=== PATIENT | male | born 1945 | race Caucasian/White ===

== ENCOUNTER 2017-08-09 15:13 | Emergency (ER) | payer MEDICARE, OTHER ==
[~2017-08-09] VITALS: Ht 193 cm; Wt 147.7 kg
[~2017-08-09 15:13] MED LIST: ALD25T PO; ALPR-624 PO; CANA300T PO; CELE-193 PO; CITA-278 PO; FURO-150 PO; GABA-338 PO; LEVO5TAB13 PO; METF500T PO; METO-539 PO; MOME15CR TP; NIZ2CR TOP; ONDA4TAB6 PO; PANT-47 PO; POTA25TA PO; PRAV10TA38 PO; SUCR1ORA2 PO; TERB30CR22 TP; TIOT18CA7 IH
[2017-08-09 16:30] LABS: BASOPHILS % (AUTO) 0.5 % (0-1); EOSINOPHILS # (AUTO) 0.2 X10'3 (0-0.9); EOSINOPHILS % (AUTO) 2.6 % (0-6); HEMATOCRIT 44.6 % (42.0-52.0); HEMOGLOBIN 15.1 g/dl (14.0-17.9); LYMPHOCYTES # (AUTO) 2.1 X10'3 (1.1-4.8); LYMPHOCYTES % (AUTO) 34.9 % (21-51); MEAN CORPUSCULAR HEMOGLOBIN 29.8 PG (27.0-31.0); MEAN CORPUSCULAR HGB CONC 33.8 % (33.0-36.5); MEAN CORPUSCULAR VOLUME 88.3 FL (78-98); MONOCYTES # (AUTO) 0.4 X10'3 (0-0.9); MONOCYTES % (AUTO) 7.2 % (2-12); NEUTROPHILS # (AUTO) 3.3 X10'3 (1.8-7.7); NEUTROPHILS % (AUTO) 54.8 % (42-75); PLATELET COUNT 254 X10'3 (140-440); RED BLOOD COUNT 5.06 X10'6 (4.70-6.10); RED CELL DISTRIBUTION WIDTH 14.6 % (11.5-14.5); WHITE BLOOD COUNT 5.9 X10'3 (4.5-11.0)
[2017-08-09 16:38] LABS: PARTIAL THROMBOPLASTIN TIME 25 SECONDS (22-32); PROTHROMBIN TIME 10.2 SECONDS (9.0-12.0)
[2017-08-09 16:48] LABS: ALANINE AMINOTRANSFERASE 71 U/L (12-78); ALBUMIN 3.6 G/DL (3.4-5.0); ALBUMIN/GLOBULIN RATIO 0.7 (1.1-1.5); ALKALINE PHOSPHATASE 106 IU/L (46-116); ANION GAP 8 (8-16); ASPARTATE AMINO TRANSFERASE 67 U/L (10-37); BILIRUBIN,TOTAL 0.8 MG/DL (0.1-1.0); BLOOD UREA NITROGEN 17 MG/DL (7-18); BUN/CREATININE RATIO 14.7 (5.4-32.0); CALCIUM 9.6 MG/DL (8.5-10.1); CHLORIDE 97 MMOL/L (99-107); CREATININE 1.16 MG/DL (0.60-1.10); GLUCOSE 331 MG/DL (70-104); POTASSIUM 4.6 MMOL/L (3.5-5.1); SODIUM 137 MMOL/L (135-145); TOTAL CARBON DIOXIDE 32.3 MMOL/L (24-32); TOTAL PROTEIN 8.5 G/DL (6.4-8.2); eGFR 62 ML/MIN
[2017-08-09 16:50] LABS: TROPONIN I < 0.04 NG/ML (0.0-0.05)
[2017-08-09] MEDS ORDERED: PROPARACAINE/FLUORESCEIN ophthalmic drops 5ml bottle LEFTEYE ONE (19:40)
[2017-08-09] MEDS ORDERED: ACYC-202 PO (19:53)
[2017-08-09] MEDS ORDERED: AMOX-580 PO (19:53)
[2017-08-09 20:47] VITALS: BP 128/81
== END 2017-08-09 20:49 | disposition home or self-care (01) ==
LOC: ER 15:13
DX: G51.0 Bell's palsy (principal); I10 Essential (primary) hypertension; E11.9 Type 2 diabetes mellitus without complications; Z88.5 Allergy status to narcotic agent; Z88.8 Allergy status to other drugs, medicaments and biological substances; Z79.84 Long term (current) use of oral hypoglycemic drugs; Z79.899 Other long term (current) drug therapy
CPT/HCPCS: 36415; 70450; 71045; 80053; 82948; 84484; 85025; 85610; 85730; 93005; 99285

== ENCOUNTER 2017-08-13 12:57 | Emergency (ER) | payer MEDICARE, OTHER ==
[~2017-08-13] VITALS: Ht 193 cm; Wt 149.0 kg
[~2017-08-13 12:57] MED LIST changes: +ACYC-202 PO; +AMOX-580 PO
[2017-08-13 13:01] VITALS: BP 157/82
[2017-08-13 13:32] LABS: BASOPHILS % (AUTO) 0.5 % (0-1); EOSINOPHILS # (AUTO) 0.2 X10'3 (0-0.9); EOSINOPHILS % (AUTO) 2.5 % (0-6); HEMATOCRIT 43.7 % (42.0-52.0); HEMOGLOBIN 14.9 g/dl (14.0-17.9); LYMPHOCYTES % (AUTO) 32.3 % (21-51); MEAN CORPUSCULAR HEMOGLOBIN 30.5 PG (27.0-31.0); MEAN CORPUSCULAR HGB CONC 34.2 % (33.0-36.5); MEAN PLATELET VOLUME 7.7 FL (7.4-10.4); MONOCYTES # (AUTO) 0.5 X10'3 (0-0.9); MONOCYTES % (AUTO) 7.4 % (2-12); NEUTROPHILS # (AUTO) 3.5 X10'3 (1.8-7.7); NEUTROPHILS % (AUTO) 57.3 % (42-75); PLATELET COUNT 238 X10'3 (140-440); WHITE BLOOD COUNT 6.2 X10'3 (4.5-11.0)
[2017-08-13 13:47] LABS: ALANINE AMINOTRANSFERASE 55 U/L (12-78); ALBUMIN 3.3 G/DL (3.4-5.0); ALBUMIN/GLOBULIN RATIO 0.7 (1.1-1.5); ALKALINE PHOSPHATASE 92 IU/L (46-116); ANION GAP 5 (8-16); ASPARTATE AMINO TRANSFERASE 52 U/L (10-37); BILIRUBIN,TOTAL 0.9 MG/DL (0.1-1.0); BLOOD UREA NITROGEN 14 MG/DL (7-18); BUN/CREATININE RATIO 12.4 (5.4-32.0); CALCIUM 9.2 MG/DL (8.5-10.1); CHLORIDE 97 MMOL/L (99-107); CREATININE 1.13 MG/DL (0.60-1.10); GLUCOSE 428 MG/DL (70-104); POTASSIUM 4.7 MMOL/L (3.5-5.1); SODIUM 134 MMOL/L (135-145); TOTAL CARBON DIOXIDE 31.7 MMOL/L (24-32); TOTAL PROTEIN 7.8 G/DL (6.4-8.2); eGFR 64 ML/MIN
[2017-08-13] MEDS ORDERED: dexamethasone sod phosphate 10mg/ml inj IM STA (14:33)
== END 2017-08-13 15:07 | disposition home or self-care (01) ==
LOC: ER 12:58
DX: G51.0 Bell's palsy (principal); E11.65 Type 2 diabetes mellitus with hyperglycemia; I10 Essential (primary) hypertension; Z88.8 Allergy status to other drugs, medicaments and biological substances; Z88.5 Allergy status to narcotic agent; Z79.84 Long term (current) use of oral hypoglycemic drugs; Z79.899 Other long term (current) drug therapy
CPT/HCPCS: 36415; 70450; 80053; 85025; 96372; 99285; J1100

== ENCOUNTER 2018-07-11 04:21 | Outpatient (CLI) | payer MEDICARE, OTHER ==
[~2018-07-11 04:21] MED LIST changes: -ACYC-202 PO; -AMOX-580 PO; -CITA-278 PO; +CITA20TA28 PO
== END 2018-07-11 23:59 | disposition home or self-care (01) ==
LOC: RT 04:21
PROVIDERS: ATTEND Internal Medicine Pulmonary Disease
DX: J45.909 Unspecified asthma, uncomplicated (principal); I10 Essential (primary) hypertension; E11.9 Type 2 diabetes mellitus without complications; J44.9 Chronic obstructive pulmonary disease, unspecified; Z88.5 Allergy status to narcotic agent; Z88.8 Allergy status to other drugs, medicaments and biological substances
CPT/HCPCS: 94010; 94618; 94640; 94760

== ENCOUNTER 2022-12-01 17:23 | Emergency (ER) | payer OTHER, MEDICARE ==
[~2022-12-01] VITALS: Ht 193 cm; Wt 122.7 kg
[~2022-12-01 17:23] MED LIST changes: +ALBU90AE INH; +APIX5TAB3 PO; -CANA300T PO; +CARB-126 PO; +CARB1TAB60 PO; +CHOL100046 PO; -CITA20TA28 PO; +ESCI20TA16 PO; -FURO-150 PO; -GABA-338 PO; +GABA800T11 PO; +HYDR25TA4 PO; +INSU100V37 SQ; +METF-900 PO; -METF500T PO; -METO-539 PO; -MOME15CR TP; -NIZ2CR TOP; +OMEG-5 PO; -ONDA4TAB6 PO; -POTA25TA PO; +PRED20TA PO; +SOTA80TA73 PO; -SUCR1ORA2 PO; -TERB30CR22 TP; -TIOT18CA7 IH
[2022-12-01] MEDS ORDERED: normal saline 1000ML IV soln IVB ONE (18:00)
[2022-12-01 19:10] LABS: BASOPHILS % (AUTO) 0.7 % (0-1); EOSINOPHILS # (AUTO) 0.1 X10'3 (0-0.9); HEMATOCRIT 40.2 % (42.0-52.0); HEMOGLOBIN 13.5 g/dl (14.0-17.9); LYMPHOCYTES # (AUTO) 2.7 X10'3 (1.1-4.8); LYMPHOCYTES % (AUTO) 41.3 % (21-51); MEAN CORPUSCULAR HEMOGLOBIN 31.3 PG (27.0-31.0); MEAN CORPUSCULAR HGB CONC 33.7 g/dL (33.0-36.5); MEAN CORPUSCULAR VOLUME 92.7 FL (78-98); MEAN PLATELET VOLUME 7.5 FL (7.4-10.4); MONOCYTES # (AUTO) 0.7 X10'3 (0-0.9); MONOCYTES % (AUTO) 10.8 % (2-12); NEUTROPHILS # (AUTO) 2.9 X10'3 (1.8-7.7); NEUTROPHILS % (AUTO) 45.2 % (42-75); PLATELET COUNT 254 X10'3 (140-440); RED BLOOD COUNT 4.33 X10'6 (4.70-6.10); RED CELL DISTRIBUTION WIDTH 15.2 % (11.5-14.5); WHITE BLOOD COUNT 6.4 X10'3 (4.5-11.0)
[2022-12-01 19:15] LABS: ALBUMIN 3.1 G/DL (3.4-5.0); ALBUMIN/GLOBULIN RATIO 0.8 (1.1-1.5); ALKALINE PHOSPHATASE 82 IU/L (46-116); ANION GAP 6 (8-16); ASPARTATE AMINO TRANSFERASE 47 U/L (10-37); BLOOD UREA NITROGEN 7 MG/DL (7-18); BUN/CREATININE RATIO 9.5 (10.0-20.0); CALCIUM 8.8 MG/DL (8.5-10.1); CHLORIDE 103 MMOL/L (99-107); CREATININE 0.74 MG/DL (0.60-1.10); GLUCOSE 111 MG/DL (70-104); MAGNESIUM 1.9 MG/DL (1.5-2.4); POTASSIUM 3.9 MMOL/L (3.5-5.1); SODIUM 139 MMOL/L (135-145); TOTAL CARBON DIOXIDE 30.3 MMOL/L (24-32); TOTAL PROTEIN 6.8 G/DL (6.4-8.2); eCRCL 106 ML/MIN; eGFR > 90 ML/MIN
[2022-12-01 19:22] LABS: ALANINE AMINOTRANSFERASE < 6 U/L (12-78)
[2022-12-01 20:20] LABS: BILIRUBIN,URINE NEGATIVE (Neg); CLARITY,URINE SLIGHTLY CLOUDY (Clear); COLOR,URINE YELLOW (Yellow); GLUCOSE, URINE >=1000 mg/dl (Neg); KETONES,URINE TRACE mg/dl (Neg); LEUKOCYTE ESTERASE ,URINE NEGATIVE (Neg); NITRITES, URINE NEGATIVE (Neg); OCCULT BLOOD,URINE NEGATIVE (Neg); PROTEIN,URINE NEGATIVE (Neg); UROBILINOGEN,URINE 0.2 E.U/dL (0.2-1.0)
[2022-12-01 20:28] LABS: UA COLLECTION TYPE CLN CATCH MIDSTREAM
[2022-12-01 20:29] LABS: SQUAMOUS EPITHELIAL CELL,UR FEW /LPF (FEW)
[2022-12-01 20:31] LABS: BACTERIA,URINE 1+ /HPF (Neg); RBC,URINE NONE SEEN /HPF (0-2); WBC,URINE NONE SEEN /HPF (0-4); YEAST FEW /HPF (NEGATIVE)
[2022-12-01 22:22] VITALS: BP 125/68; PULSE 69; RESP 16; O2SAT 96
== END 2022-12-01 22:25 | disposition home or self-care (01) ==
LOC: ER 17:23
DX: R42 Dizziness and giddiness (principal); T14.8XXA Other injury of unspecified body region, initial encounter; E78.00 Pure hypercholesterolemia, unspecified; I10 Essential (primary) hypertension; J44.9 Chronic obstructive pulmonary disease, unspecified; E11.9 Type 2 diabetes mellitus without complications; Z88.5 Allergy status to narcotic agent; Z88.8 Allergy status to other drugs, medicaments and biological substances; Z79.82 Long term (current) use of aspirin; Z79.2 Long term (current) use of antibiotics; W19.XXXA Unspecified fall, initial encounter; Y93.89 Activity, other specified; Y92.89 Other specified places as the place of occurrence of the external cause; Y99.8 Other external cause status
CPT/HCPCS: 36415; 71045; 73140; 80053; 81001; 83735; 84484; 85025; 87088; 93005; 99285; J7030; J7040; A4615

== ENCOUNTER 2022-12-06 14:47 | Emergency (ER) | payer OTHER, MEDICARE ==
[~2022-12-06] VITALS: Ht 193 cm; Wt 122.0 kg
[2022-12-06 18:40] VITALS: TEMP 98.3
--- NOTE | 2022-12-06 20:49 | NUR ---
SPOKE WITH PATIENTS GIN [phone] PATIENT CONCERNED ABOUT BLOOD SUGAR, PATIENT IS UPSET A DOCTOR HAS NOT SIGNED UP FOR PATIENT WAS ABLE TO GET VERBAL ORDER FOR PO ISAI PATIENT REFUSED PO AND IS REQUESTING IV MORPHINE, STATES EYES ON PATIENT PRIOR TO IV MEDICATIONS
--- NOTE | 2022-12-06 21:03 | NUR ---
PATIENTS DEX COM SAYS 135 PROVIDED PATIENT TURKEY SANDWICH AND APPLE JUICE NO OTHER NEEDS AT THIS TIME
--- NOTE | 2022-12-06 21:41 | NUR ---
FAMILY AT BEDSIDE STILL NO MD SIGNED UP FOR PATIENT
[2022-12-06] MEDS ORDERED: morphine 4 MG/ML inj SYRINge IV STA (21:42)
[2022-12-06] MEDS ORDERED: ketorolac trometh inj. 60 MG/2 ML VIAL IM ONE (23:30)
[2022-12-06] MEDS ORDERED: TRAM1TAB7 PO (23:32)
[2022-12-07 00:40] VITALS: BP 135/83; PULSE 84; RESP 14; O2SAT 98
== END 2022-12-07 00:42 | disposition home or self-care (01) ==
LOC: ER 14:48
DX: M25.552 Pain in left hip (principal); G20 Parkinson's disease; E78.00 Pure hypercholesterolemia, unspecified; I10 Essential (primary) hypertension; J44.9 Chronic obstructive pulmonary disease, unspecified; E11.9 Type 2 diabetes mellitus without complications; Z88.5 Allergy status to narcotic agent; Z88.6 Allergy status to analgesic agent; Z79.2 Long term (current) use of antibiotics; Z79.899 Other long term (current) drug therapy; Z79.84 Long term (current) use of oral hypoglycemic drugs
CPT/HCPCS: 73502; 74176; 96372; 96374; 99285; J1885; J2270; 73501

== ENCOUNTER 2022-12-09 14:03 | Emergency (ER) | payer OTHER, MEDICARE ==
[~2022-12-09] VITALS: Ht 193 cm; Wt 122.7 kg
[~2022-12-09 14:03] MED LIST changes: +TRAM1TAB7 PO
[2022-12-09 16:02] LABS: BASOPHILS % (AUTO) 0.6 % (0-1); EOSINOPHILS # (AUTO) 0.1 X10'3 (0-0.9); EOSINOPHILS % (AUTO) 2.1 % (0-6); HEMATOCRIT 42.5 % (42.0-52.0); HEMOGLOBIN 14.2 g/dl (14.0-17.9); LYMPHOCYTES % (AUTO) 27.7 % (21-51); MEAN CORPUSCULAR HEMOGLOBIN 31.4 PG (27.0-31.0); MEAN CORPUSCULAR HGB CONC 33.4 g/dL (33.0-36.5); MEAN PLATELET VOLUME 7.6 FL (7.4-10.4); MONOCYTES # (AUTO) 0.6 X10'3 (0-0.9); MONOCYTES % (AUTO) 9.2 % (2-12); NEUTROPHILS # (AUTO) 4.3 X10'3 (1.8-7.7); NEUTROPHILS % (AUTO) 60.4 % (42-75); PLATELET COUNT 227 X10'3 (140-440); RED BLOOD COUNT 4.52 X10'6 (4.70-6.10); RED CELL DISTRIBUTION WIDTH 14.4 % (11.5-14.5); WHITE BLOOD COUNT 7.1 X10'3 (4.5-11.0)
[2022-12-09 16:04] LABS: APTT 29 SECONDS (22-32); PROTHROMBIN TIME 10.9 SECONDS (9.0-12.0)
[2022-12-09 16:08] LABS: ALANINE AMINOTRANSFERASE 29 U/L (12-78); ALBUMIN 3.2 G/DL (3.4-5.0); ALBUMIN/GLOBULIN RATIO 0.8 (1.1-1.5); ALKALINE PHOSPHATASE 102 IU/L (46-116); ANION GAP 6 (8-16); ASPARTATE AMINO TRANSFERASE 31 U/L (10-37); BILIRUBIN,TOTAL 1.5 MG/DL (0.1-1.0); BLOOD UREA NITROGEN 12 MG/DL (7-18); BUN/CREATININE RATIO 13.2 (10.0-20.0); CALCIUM 8.8 MG/DL (8.5-10.1); CHLORIDE 102 MMOL/L (99-107); CREATININE 0.91 MG/DL (0.60-1.10); GLUCOSE 339 MG/DL (70-104); POTASSIUM 4.4 MMOL/L (3.5-5.1); SODIUM 139 MMOL/L (135-145); TOTAL CARBON DIOXIDE 30.6 MMOL/L (24-32); TOTAL PROTEIN 7.3 G/DL (6.4-8.2); eCRCL 86 ML/MIN; eGFR 81 ML/MIN
[2022-12-09 16:11] LABS: CREATINE KINASE 54 U/L (39-308); LIPASE 51 U/L (73-393); MAGNESIUM 1.9 MG/DL (1.5-2.4)
--- NOTE | 2022-12-09 16:12 | NUR ---
Pt was incont of urine. Brief was changed.
[2022-12-09 16:20] LABS: ETHANOL < 10 MG/DL (<10)
--- NOTE | 2022-12-09 17:20 | NUR ---
Spoke to his per Pt request. [phone] Alicja.
[2022-12-09 17:52] LABS: BILIRUBIN,URINE NEGATIVE (Neg); CLARITY,URINE CLEAR (Clear); COLOR,URINE YELLOW (Yellow); GLUCOSE, URINE >=1000 mg/dl (Neg); KETONES,URINE 15 mg/dl (Neg); LEUKOCYTE ESTERASE ,URINE NEGATIVE (Neg); NITRITES, URINE NEGATIVE (Neg); OCCULT BLOOD,URINE NEGATIVE (Neg); PROTEIN,URINE NEGATIVE (Neg); UROBILINOGEN,URINE 0.2 E.U/dL (0.2-1.0)
[2022-12-09 17:57] LABS: BACTERIA,URINE NONE SEEN /HPF (Neg); MUCUS STRANDS NONE SEEN /LPF (Neg); RBC,URINE 0-2 /HPF (0-2); SQUAMOUS EPITHELIAL CELL,UR NONE SEEN /LPF (FEW); UA COLLECTION TYPE CLN CATCH MIDSTREAM; WBC,URINE NONE SEEN /HPF (0-4)
[2022-12-09 18:22] LABS: URINE AMPHETAMINE SCREEN NEGATIVE (Neg); URINE BARBITUATE SCREEN NEGATIVE (Neg); URINE BENZODIAZEPINES SCREEN NEGATIVE (Neg); URINE CANNABINOID SCREEN NEGATIVE (Neg); URINE COCAINE SCREEN NEGATIVE (Neg); URINE METHADONE SCREEN NEGATIVE (Neg); URINE OPIATE SCREEN NEGATIVE (Neg); URINE PHENCYCLIDINE SCREEN NEGATIVE (Neg)
[2022-12-09] MEDS ORDERED: levetiracetam inj 1,000 MG in normal saline 100ml IV soln 90 ML IV ONE (20:30)
[2022-12-09] MEDS ORDERED: levetiracetam inj 1,000 MG in normal saline 100ml IV soln 100 ML IV ONE (20:30)
[2022-12-09] MEDS ORDERED: morphine 4 MG/ML inj SYRINge IV ONE (21:05)
[2022-12-09] MEDS ORDERED: ondansetron/PF 4mg/2ml inj IV ONE (21:05)
[2022-12-09 22:20] VITALS: PULSE 69
[2022-12-10 00:34] VITALS: BP 133/63; RESP 13; TEMP 98.1; O2SAT 99
== END 2022-12-10 00:38 | disposition short-term general hospital (02) ==
LOC: ER 14:04
DX: S06.5XAA Traumatic subdural hemorrhage with loss of consciousness status unknown, initial encounter (principal); E78.00 Pure hypercholesterolemia, unspecified; I10 Essential (primary) hypertension; J44.9 Chronic obstructive pulmonary disease, unspecified; E11.9 Type 2 diabetes mellitus without complications; Z88.5 Allergy status to narcotic agent; Z88.8 Allergy status to other drugs, medicaments and biological substances; Z79.2 Long term (current) use of antibiotics; Z79.899 Other long term (current) drug therapy; Z79.84 Long term (current) use of oral hypoglycemic drugs; W19.XXXA Unspecified fall, initial encounter; Y93.89 Activity, other specified; Y92.89 Other specified places as the place of occurrence of the external cause; Y99.8 Other external cause status
CPT/HCPCS: 36415; 70450; 71045; 80053; 80305; 80320; 81001; 82140; 82550; 83690; 83735; 84484; 85025; 85610; 85730; 93005; 96374; 96375; 99285; A6222; J1953; J2270; J2405; J3490; A6258